=== PATIENT | female | born 1995 ===

== ENCOUNTER 2021-06-12 03:44 | Emergency (ER) | payer BC, SELFPAY ==
[2021-06-12] MEDS ORDERED: AMOXicillin 250 MG CAP ONE (04:17)
[2021-06-12] MEDS ORDERED: HYDROcodone/Acetaminophen 5/325 mg Tablet ONE (04:18)
[2021-06-12] MEDS ORDERED: AMOXicillin 250 MG CAP PO SCH (04:30)
== END 2021-06-12 04:46 | disposition home or self-care (01) ==
LOC: EDBD 03:44 → BURERS 03:44
DX: N13.2 Hydronephrosis with renal and ureteral calculous obstruction (principal); G43.909 Migraine, unspecified, not intractable, without status migrainosus; Z79.899 Other long term (current) drug therapy
CPT/HCPCS: 99282